=== PATIENT | male | born 1960 | race Caucasian/White ===

== ENCOUNTER → 2019-07-08 | Outpatient (CLI) | payer OTHER | LOC: COL.RAD 12:13 | DX: D64.9 Anemia, unspecified (principal); J18.9 Pneumonia, unspecified organism ==

== ENCOUNTER → 2019-07-17 | Outpatient (CLI) | payer OTHER | LOC: COL.RAD 08:04 | DX: K44.9 Diaphragmatic hernia without obstruction or gangrene (principal); K57.30 Diverticulosis of large intestine without perforation or abscess without bleeding; J18.9 Pneumonia, unspecified organism; R91.1 Solitary pulmonary nodule; Z85.72 Personal history of non-Hodgkin lymphomas | CPT/HCPCS: Q9967 ==

== ENCOUNTER 2019-07-28 08:41 | Outpatient (CLI) | payer OTHER ==
[~2019-07-28] VITALS: Ht 188 cm; Wt 77.8 kg
[2019-07-28] VITALS (11 sets, daily range): BP systolic 102–115; BP diastolic 54–85; PULSE 68–83
[~2019-07-28 08:41] MED LIST: 00186-0370-20 IH; DOXYCYCLINE HY100 MG PO; KLONOPIN 1MG1 MG PO; NEXIUM 20MG20 MG PO; SEROQUEL 1100 MG/TAB PO; VENTOLIN0.09 MG IH
[2019-07-28] MEDS ORDERED: ZOFRAN ODT8 MG PO (09:13)
--- NOTE | 2019-07-28 09:45 | NUR ---
PT TAKEN TO CT AND POSITIONED ON CT TABLE. MONITORING EQUIPMWNT PLACED. IMAGES TAKEN AND SENT
--- NOTE | 2019-07-28 10:00 | NUR ---
PT TAKEN TO EU 15. PT TRNASFERS SELF TO BED. SPECIMENS TAKEN TO LAB
== END 2019-07-28 12:47 | disposition home or self-care (01) ==
LOC: COL.RAD 08:41
DX: R91.8 Other nonspecific abnormal finding of lung field (principal)
CPT/HCPCS: J2250; J3010

== ENCOUNTER 2019-07-29 08:00 | Outpatient (RCR) | payer OTHER ==
[2019-07-24 09:38] VITALS: BP 113/65; PULSE 82; TEMP 98.4
[~2019-07-29] VITALS: Ht 188 cm; Wt 77.1 kg
[~2019-07-29 08:00] MED LIST changes: +ZOFRAN ODT8 MG PO
[2019-07-29 08:56] VITALS: BP 110/62; PULSE 76; TEMP 98
== END 2019-07-29 09:45 | disposition home or self-care (01) ==
LOC: EUO 08:00
DX: D50.9 Iron deficiency anemia, unspecified (principal)
CPT/HCPCS: J2916

== ENCOUNTER 2020-10-06 15:36 | Emergency (ER) | payer OTHER ==
[~2020-10-06] VITALS: Ht 188 cm; Wt 79.5 kg
[2020-10-06 15:43] VITALS: TEMP 98.1
[2020-10-06 16:13] LABS: BASO % 0.4 % (0.0-2.0); EOS # 0.2 (0.0-0.7); EOS % 2.1 % (0-4.0); GRAN # 5.4 (1.4-6.5); HEMOGLOBIN 10.7 g/dl (13.5-18.0); LYMPH # 1.5 (1.2-3.4); MEAN CELL VOLUME 94 fl (80.0-100.0); MEAN CORPUSCULAR HEMOGLOBIN 31 pg (27.0-31.0); MEAN CORPUSCULAR HGB CONC 33 g/dl (33.0-37.0); MEAN PLATELET VOLUME 9.6 fl (7.4-10.4); MONO # 0.6 (0.1-0.6); MONO % 8.2 % (1.7-9.3); PLATELET COUNT 351 K/mm3 (130-400); RED BLOOD COUNT 3.48 M/mm3 (4.20-5.60); REDCELL DISTRIBUTION WIDTH-CV 13.3 % (11.5-14.5)
[2020-10-06 16:22] LABS: ALANINE AMINOTRANSFERASE 11 U/L (4-49); ALBUMIN 3.9 gm/dL (3.5-5.0); ALKALINE PHOSPHATASE 85 U/L (50-136); ANION GAP 3 mmol/L (7-16); AST,SGOT 18 U/L (15-37); BILIRUBIN,TOTAL 0.3 mg/dL (0.0-1.0); BLOOD UREA NITROGEN 20 mg/dL (9-20); CARBON DIOXIDE 25 mmol/L (22-30); CHLORIDE 106 mmol/L (98-107); CREATININE, serum 1.17 (0.66-1.25); GLUCOSE 108 mg/dL (74-106); POTASSIUM 4.3 mmol/L (3.4-5.0); SODIUM 135 mmol/L (137-145)
[2020-10-06 16:29] LABS: HEMATOCRIT 32.6 % (42.0-52.0)
[2020-10-06 17:42] VITALS: BP 127/77; PULSE 82
[2020-10-06 17:57] LABS: TROPONIN-I < 0.012 ng/mL (0.000-0.035)
[2020-10-06 19:19] LABS: LIPASE 53 U/L (23-300)
== END 2020-10-06 18:20 | disposition home or self-care (01) ==
LOC: COL.ER 15:36
PROVIDERS: Physician Assistant
DX: J18.1 Lobar pneumonia, unspecified organism (principal); Z87.891 Personal history of nicotine dependence

== ENCOUNTER → 2022-06-09 | Outpatient (CLI) | payer OTHER | LOC: COL.RAD 07:20 | DX: K44.9 Diaphragmatic hernia without obstruction or gangrene (principal); K21.9 Gastro-esophageal reflux disease without esophagitis ==

== ENCOUNTER 2022-08-31 19:34 | Emergency (ER) | payer OTHER ==
[~2022-08-31] VITALS: Ht 188 cm; Wt 79.5 kg
[2022-08-31 19:41] VITALS: TEMP 97.1
[2022-08-31 21:05] LABS: BASO % 0.5 % (0.0-2.0); EOS # 0.1 K/mm3 (0.0-0.7); EOS % 0.8 % (0.0-4.0); GRAN # 4.3 K/mm3 (1.4-6.5); HEMOGLOBIN 10.9 g/dl (13.5-18.0); LYMPH # 1.2 K/mm3 (1.2-3.4); LYMPH % 19.6 % (20.0-51.0); MEAN CELL VOLUME 88 fl (80.0-100.0); MEAN CORPUSCULAR HEMOGLOBIN 27 pg (27-31); MEAN CORPUSCULAR HGB CONC 31 g/dl (33.0-37.0); MEAN PLATELET VOLUME 9.4 fl (7.4-10.4); MONO # 0.5 K/mm3 (0.1-0.6); MONO % 8.8 % (1.7-9.3); PLATELET COUNT 444 K/mm3 (130-400); REDCELL DISTRIBUTION WIDTH-CV 15.9 % (11.5-14.5)
[2022-08-31 21:07] LABS: HEMATOCRIT 35.3 % (42.0-52.0)
[2022-08-31 21:22] LABS: ALANINE AMINOTRANSFERASE 27 U/L (0-55); ALBUMIN 3.9 gm/dL (3.5-5.0); ALKALINE PHOSPHATASE 68 U/L (40-150); ANION GAP 12 mmol/L (7-16); AST,SGOT 23 U/L (5-34); BILIRUBIN,TOTAL 0.2 mg/dL (0.2-1.2); BLOOD UREA NITROGEN 15 mg/dL (8-26); C-REACTIVE PROTEIN 4.11 mg/dL (0.00-0.50); CALCIUM 8.7 mg/dL (8.4-10.2); CARBON DIOXIDE 20 mmol/L (22-29); CHLORIDE 108 mmol/L (98-107); CREATININE, serum 1.08 mg/dL (0.72-1.25); GLUCOSE 128 mg/dL (70-99); POTASSIUM 3.9 mmol/L (3.5-4.5); SODIUM 140 mmol/L (136-145); TOTAL PROTEIN 6.8 gm/dL (6.2-8.1)
[2022-08-31 21:28] LABS: TROPONIN-I < 0.010 ng/mL (0.00-0.033)
[2022-08-31 22:47] VITALS: BP 150/99; PULSE 85
== END 2022-08-31 22:48 | disposition home or self-care (01) ==
LOC: COL.ER 19:34
PROVIDERS: Nurse Practitioner
DX: R04.2 Hemoptysis (principal); Z87.891 Personal history of nicotine dependence; Z28.310 Unvaccinated for COVID-19
CPT/HCPCS: J2060